=== PATIENT | male | born 1960 | race Caucasian/White ===

== ENCOUNTER 2021-08-05 10:32 | Emergency (ER) | payer OTHER ==
[2021-08-05] MEDS ORDERED: Aspirin 81 MG Tab.Chew PO ONE (11:26)
[2021-08-05 12:14] LABS: ESTIMATED GFR 97 mL/min (>60)
[2021-08-05] MEDS ORDERED: Heparin Sodium 5,000 Units/ML Vial IVPUSH ONE (15:36)
[2021-08-05] MEDS ORDERED: Heparin Sodium/D5W 25,000 UNITS/500 ML BAG IV SCH (15:45)
== END 2021-08-05 16:43 ==
LOC: JP.ED 10:32
DX: I24.9 Acute ischemic heart disease, unspecified (principal); I10 Essential (primary) hypertension; E78.5 Hyperlipidemia, unspecified; E78.00 Pure hypercholesterolemia, unspecified; Z88.8 Allergy status to other drugs, medicaments and biological substances; Z79.899 Other long term (current) drug therapy; Z20.822 Contact with and (suspected) exposure to COVID-19
CPT/HCPCS: 36415; 71045; 80053; 84484; 85025; 87635; 93005; 96374; 99285; A9270; J1644; 93010; U0002